=== PATIENT | male | born 1970 | race Caucasian/White ===

== ENCOUNTER 2021-10-14 09:48 | Outpatient (CLI) | payer BC ==
[2021-10-14] MEDS ORDERED: Iopamidol 300 61% 100 ML VIAL FS ONE (10:01)
== END 2021-10-14 09:49 | disposition home or self-care (01) ==
LOC: CSHCT 09:48
PROVIDERS: ATTEND Internal Medicine Hematology & Oncology
DX: C64.1 Malignant neoplasm of right kidney, except renal pelvis (principal); R91.8 Other nonspecific abnormal finding of lung field; C34.11 Malignant neoplasm of upper lobe, right bronchus or lung; C34.2 Malignant neoplasm of middle lobe, bronchus or lung
CPT/HCPCS: 71260; 74177; 82565

== ENCOUNTER 2022-04-29 07:37 | Outpatient (CLI) | payer BC | END 2022-04-29 07:38 | disposition home or self-care (01) | LOC: CSHCT 07:37 | PROVIDERS: ATTEND Internal Medicine Hematology & Oncology | DX: C64.9 Malignant neoplasm of unspecified kidney, except renal pelvis (principal) | CPT/HCPCS: 71260; 74177 ==

== ENCOUNTER 2022-05-27 07:33 | Outpatient (CLI) | payer BC | END 2022-05-27 07:34 | disposition home or self-care (01) | LOC: CSHULT 07:33 | PROVIDERS: ATTEND Family Medicine | DX: I82.462 Acute embolism and thrombosis of left calf muscular vein (principal) ==

== ENCOUNTER 2024-03-23 08:17 | Outpatient (CLI) | payer BC | END 2024-03-23 08:18 | disposition home or self-care (01) | LOC: CSHULT 08:17 | PROVIDERS: ATTEND Family Medicine | DX: M79.661 Pain in right lower leg (principal); Z86.718 Personal history of other venous thrombosis and embolism ==